=== PATIENT | male | born 1980 | race Caucasian/White ===

== ENCOUNTER 2022-08-09 08:00 | Outpatient (NON) | payer OTHER, SELFPAY | END 2022-08-09 08:01 | disposition home or self-care (01) | LOC: ANHLAB 08-10 10:00 | PROVIDERS: PCP Family Medicine; Visit Provider Internal Medicine Gastroenterology | DX: R19.5 Other fecal abnormalities (principal) | CPT/HCPCS: 88305 ==

== ENCOUNTER 2022-08-09 10:54 | Day surgery (SDC) | payer OTHER, SELFPAY ==
[2022-07-25 09:25] VITALS: BMI 19.9
[2022-08-02 07:46] VITALS: BMI 19.9
--- NOTE | 2022-08-08 15:01 | PM.HPGS ---
History of Present Illness History of Present Illness Consent: Risks, benefits, and alternatives have been discussed and questions answered. Patient agrees to proceed with procedure. Chief complaint: Change in Consistency of Stool Narrative: Kirk Redding is a 42 year old male referred for change in bowel habits. For about 2 years he has had very soft almost loose stools each morning. He does not see blood in his stools. Review of Systems Review of Systems: All systems reviewed & are unremarkable except as noted in HPI and below PMFSH Past Medical History Medical History Change in consistency of stool Cough Loose stools Family History Family History Grandparent Hypertension Family history of coronary artery disease Mother Family history of thyroid disease Social History Social History Smoking status: Never smoker Alcohol intake: current Alcohol use details: 2-3 drinks, 3-4 days per week Substance use type: does not use Living arrangements: with family Spiritual care concerns: No Meds Home Medications and Allergies Home Medications Medication Instructions Recorded Confirmed Type No Home Medications 08/02/22 08/09/22 History Allergies Allergy/AdvReac Type Severity Reaction Status Date / Time No Known Allergies Allergy Mild Verified 08/09/22 11:02 Exam Resp: Auscultation: clear to auscultation bilaterally Cardio: Rate: regular rate Rhythm: regular rhythm GI: GI Palp: Yes Soft to palpation and No Tenderness to palpation present (GI) Assessment and Plan Assessment and plan (1) Change in consistency of stool: Code(s): R19.5 - Other fecal abnormalities Status: Acute Assessment and Plan: Colonoscopy with possible biopsy or polypectomy or cautery or injection of substances.
--- NOTE | 2022-08-09 09:36 | P.PNAN_ITS ---
Anes - Initial Pre Proc Eval Procedure: Operation Date: 08/09/22 12:30 Proposed Procedures p Diagnostic Colonoscopy - Wolf Walter MD Date/Time: 08/09/22 09:36 Surgeon: Wolf Walter MD Pre Op Diagnosis: Change in Consistency of Stool Patient Data Age: 42 Gender: M Height: 1.73 m Weight: 59.5 kg Allergies Allergy/AdvReac Type Severity Reaction Status Date / Time No Known Allergies Allergy Mild Verified 08/09/22 11:02 Home Medications Medication Instructions Recorded Confirmed Type No Home Medications 08/02/22 08/09/22 History Patient hx anesthesia problems: none Family hx anesthesia problems: none Results Review: All pre-operative results and documents have been reviewed as part of the pre- operative evaluation. [facility] Past Medical History Medical History (Updated 07/18/22 @ 16:32 by NATHAN Bay) Change in consistency of stool Cough Loose stools Family History Family History Grandparent Hypertension Family history of coronary artery disease Mother Family history of thyroid disease Social History Social History (Updated 08/09/22 @ 11:56 by Josep Espana DO) Smoking status: Never smoker Alcohol intake: current Alcohol use details: 2-3 drinks, 3-4 days per week Substance use type: does not use Living arrangements: with family Spiritual care concerns: No Anes - Eval Final PreProcedure Day of Procedure 08/09/22 09:36 Patient weight: normal Heart: regular rate and rhythm Lungs: clear to auscultation and normal air movement Airway: Mallampati scale class II Neurological: alert and oriented Last oral intake: >/= 8 hours ASA classification: II Emergent: no Anesthetic plan: proceed Anesthesia type and monitoring: general GIVS and standard monitoring Results Review: All pre-operative results and documents have been reviewed as part of the pre- operative evaluation. Informed Consent: The patient's anesthetic plan and its attendant risks and benefits were discussed with the patient/family/POA. Questions were solicited and answers provided to the satisfaction of the patient/family/POA.
[2022-08-09 11:05] VITALS: BMI 18.8
[2022-08-09 11:11] VITALS: BP 97/82; PULSE 66; RESP 16; TEMP 36.8; O2SAT 100
[2022-08-09] MEDS: LACTATED RINGERS 1,000 ML 150 ML IV CONT (11:30)
[2022-08-09 12:42] VITALS: BP 98/60; PULSE 55; RESP 16; O2SAT 99
[2022-08-09 12:52] VITALS: BP 95/64; PULSE 54; RESP 16; O2SAT 99
[2022-08-09 13:02] VITALS: BP 109/72; PULSE 50; RESP 15; O2SAT 99
--- NOTE | 2022-08-09 13:20 | WPDANESPN ---
Anes - Prog Note Post-Op Date/Time: 08/09/22 13:20 Cardiovascular status: normal Respiratory status: normal Airway patency: baseline Mental status: baseline Post-Op hydration status: normal Vital Signs: Last Vital Signs Temp 36.8 C 08/09/22 11:11 Pulse 50 L 08/09/22 13:02 Resp 15 08/09/22 13:02 BP 109/72 08/09/22 13:02 Pulse Ox 99 08/09/22 13:02 O2 Del Method Room Air 08/09/22 13:02 Pain Score (VAS): 0 I/O: Intake & Output 08/08/22 08/09/22 08/09/22 23:59 07:59 15:59 Intake Total 500 Balance 500 Post-procedural complaints: none Patient Feedback: Patient satisfied with anesthetic care. Other Findings: Patient vital signs back to baseline. Patient denies nausea and vomiting. Patient's pain under control. Patient OK for discharge.
== END 2022-08-09 13:20 | disposition home or self-care (01) ==
PROVIDERS: PCP Family Medicine; Visit Provider Internal Medicine Gastroenterology
PROC: 0DJD8ZZ Inspection of Lower Intestinal Tract, Via Natural or Artificial Opening Endoscopic (ICD-10-PCS; CPT 45378; principal; 2022-08-09 12:30)
DX: R19.5 Other fecal abnormalities (principal)
CPT/HCPCS: 45380

== ENCOUNTER 2023-04-12 13:29 | Emergency (ER) | payer OTHER, SELFPAY ==
[2023-04-12 13:40] VITALS: BP 116/74; PULSE 52; RESP 16; TEMP 36.2; O2SAT 99
--- NOTE | 2023-04-12 13:41 | ED.URI ---
HPI - URI/Sore Throat General Chief Complaint: Upper Respiratory Infection Stated Complaint: Ear Pressure and pain for 1 wk Time Seen by Provider: 04/12/23 13:41 Source: patient Mode of arrival: ambulatory Limitations: no limitations History of Present Illness HPI Narrative: 43-year-old male presents with complaint of bilateral ear pain, left worse than right. Afebrile. Reports that he had sinus congestion postnasal drainage that resolved last week. Decreased hearing to left ear. All systems reviewed and negative except as noted above. Related Data Allergies Allergy/AdvReac Type Severity Reaction Status Date / Time No Known Allergies Allergy Mild Verified 04/12/23 13:33 Review of Systems Review of Systems: CONSTITUTIONAL: Denies fever, chills, or sweats. EYES: Denies visual changes, redness, or discharge. ENT: Denies rhinorrhea, congestion, sore throat . Reports bilateral ear pain. CARDIOVASCULAR: Denies chest pain, palpitations, or edema. RESPIRATORY: Denies cough or dyspnea. GASTROINTESTINAL: Denies abdominal pain, nausea, vomiting, or diarrhea. GENITOURINARY: Denies dysuria or hematuria. SKIN: Denies rash or itching. MUSCULOSKELETAL: Denies back pain, joint pain, or myalgia. NEUROLOGIC: Denies headache, numbness, or weakness. PSYCHIATRIC: Denies anxiety or depression. All other systems reviewed are negative, except as documented in HPI. PMFSH Past Medical History Medical History Change in consistency of stool Cough Loose stools Family History Family History Grandparent Hypertension Family history of coronary artery disease Mother Family history of thyroid disease Social History Social History Smoking status: Never smoker Alcohol intake: current Alcohol use details: 2-3 drinks, 3-4 days per week Substance use type: does not use Living arrangements: with family Spiritual care concerns: No Comments At time of signature, agree with nursing past medical, surgical, social and family history. There is no relevant family history pertinent to the presenting complaint. Exam Narrative: GENERAL: This is a well-nourished, well-developed patient, in no apparent distress. HEAD: normocephalic, atraumatic. EYES: PERRL. Sclera clear/white. Vision is grossly intact. EARS: External ears normal, auditory canals clear and without drainage, Yellow fluid, bubbles to left TM With mild erythema. Clear fluid to right TM. no perforation bilaterally. NOSE: External nose normal with no obvious nasal discharge, nares without redness, no rhinorrhea. THROAT: Mucous membranes moist, Postnasal drainage without swelling or erythema NECK: Neck supple, non-tender without lymphadenopathy, masses or thyromegaly. CARDIOVASCULAR: Regular rate and rhythm without murmurs, gallops, or rubs. RESPIRATORY: Clear to auscultation. Breath sounds equal bilaterally. No wheezes, rales, or rhonchi. SKIN: warm, Dry, intact with no suspicious lesions or rash, good texture and turgor. NEURO: awake, alert, and oriented to person, place and time. There were no obvious focal neurologic abnormalities. EXTREMITIES: No joint tenderness, effusion, or edema noted. Course Course Level of Care: Express Care Visit Vital Signs Vital signs: Vital Signs Temperature 36.2 C L 04/12/23 13:40 Pulse Rate 52 L 04/12/23 13:40 Respiratory Rate 16 04/12/23 13:40 Blood Pressure 116/74 04/12/23 13:40 Pulse Oximetry 99 04/12/23 13:40 Oxygen Delivery Room Air 04/12/23 13:40 Temperature 36.2 C L 04/12/23 13:40 Pulse Rate 52 L 04/12/23 13:40 Respiratory Rate 16 04/12/23 13:40 Blood Pressure 116/74 04/12/23 13:40 Pulse Oximetry 99 04/12/23 13:40 Oxygen Delivery Room Air 04/12/23 13:40 reviewed MDM - URI/Sore Throat MDM Narrative Medical
== END 2023-04-12 13:49 | disposition home or self-care (01) ==
PROVIDERS: Emergency Provider Nurse Practitioner Family; PCP Family Medicine
DX: H65.02 Acute serous otitis media, left ear (principal)
CPT/HCPCS: 99213; G0463

== ENCOUNTER 2023-10-12 08:06 | Emergency (ER) | payer OTHER, SELFPAY ==
[2023-10-12 08:20] VITALS: BP 109/71; PULSE 44; RESP 16; TEMP 36.8; O2SAT 100
--- NOTE | 2023-10-12 08:31 | ED.URI ---
HPI - URI/Sore Throat General Chief Complaint: Upper Respiratory Infection Stated Complaint: Sore Throat and Earache Time Seen by Provider: 10/12/23 08:20 Source: patient and RN notes reviewed Mode of arrival: ambulatory Limitations: no limitations History of Present Illness HPI Narrative: Patient presents today complaining of a 3-4 day history of postnasal drip, sore throat, bilateral ear pressure in pain. Denies fever, cough, congestion, rhinorrhea. Patient just returned from vacation and was flying. Currently rates pain 10/06 and has been taking ibuprofen with mild relief. Related Data Allergies Allergy/AdvReac Type Severity Reaction Status Date / Time No Known Allergies Allergy Mild Verified 10/12/23 08:12 Review of Systems Review of Systems: CONSTITUTIONAL: Denies body aches, fever, chills, or sweats. EYES: Denies visual changes, redness, or discharge. ENT: Denies rhinorrhea, congestion. + sore throat, bilateral ear pain and pressure, postnasal CARDIOVASCULAR: Denies chest pain, palpitations, or edema. RESPIRATORY: Denies cough or dyspnea. GASTROINTESTINAL: Denies abdominal pain, nausea, vomiting, or diarrhea. GENITOURINARY: Denies dysuria or hematuria. SKIN: Denies rash, itching, or wounds. MUSCULOSKELETAL: Denies back pain, joint pain, or myalgia. NEUROLOGIC: Denies headache, numbness, tingling, or weakness. PSYCH: Denies depression or anxiety. [facility] Past Medical History Medical History Change in consistency of stool Cough Loose stools Family History Family History Grandparent Hypertension Family history of coronary artery disease Mother Family history of thyroid disease Social History Social History Smoking status: Never smoker Alcohol intake: current Alcohol use details: 2-3 drinks, 3-4 days per week Substance use type: does not use Do You Feel Safe in your Home?: Yes Lack of Transportation: No Lack of Food: Never True Current Housing: I Have Housing Concerned About Future Housing: No Difficulty Paying Gas/Electric Bills: No Difficulty Paying for Meds: No Currently Unemployed: No Education: Master's Degree or Higher Difficulty w/ Childcare or Family Care: No Living arrangements: with family Spiritual care concerns: No Comments At time of signature, I have reviewed and agree with nursing past medical, surgical, social and family history unless otherwise noted. Please see nursing chart for further information. There is no relevant family history pertinent to the presenting complaint Exam Narrative: GENERAL: Well-appearing, well-nourished, and in no acute distress. Thin HEAD: Normocephalic, atraumatic. EYES: EOMI. No redness or drainage. Conjunctivae normal. ENT: Mucous membranes pink and moist. Nares clear. No rhinorrhea. Right injected and dull TM. Left TM normal. Throat mildly erythematous without edema or exudate. Uvula midline. NECK: Normal AROM. Supple. No lymphadenopathy. CHEST: No respiratory distress. Clear to auscultation. HEART: Regular rate and rhythm. No murmur appreciated. EXTREMITIES: Normal range of motion. No edema. SKIN: Warm, dry, no rash. Capillary refill normal. Normal skin turgor. NEURO: No focal deficits. Alert and oriented x3. Gait steady. PSYCH: Normal affect. No signs of depression or anxiety. Course Course Level of Care: Express Care Visit Vital Signs Vital signs: Vital Signs Temperature 98.2 F 10/12/23 08:20 Pulse Rate 44 L 10/12/23 08:20 Respiratory Rate 16 10/12/23 08:20 Blood Pressure 109/71 10/12/23 08:20 Pulse Oximetry 100 10/12/23 08:20 Oxygen Delivery Room Air 10/12/23 08:20 Temperature 98.2 F 10/12/23 08:20 Pulse Rate 44 L 10/12/23 08:20 Respiratory Rate 16 10/12/23 08:20 Blood Pressure
== END 2023-10-12 08:33 | disposition home or self-care (01) ==
PROVIDERS: Emergency Provider Nurse Practitioner; PCP Family Medicine
DX: H66.91 Otitis media, unspecified, right ear (principal); J02.9 Acute pharyngitis, unspecified
CPT/HCPCS: 87081; 87880; 99213; G0463

== ENCOUNTER 2024-04-02 08:01 | Emergency (ER) | payer OTHER, SELFPAY ==
[2024-04-02 08:28] VITALS: BP 112/70; PULSE 67; RESP 18; TEMP 37.5; O2SAT 99
[2024-04-02 08:47] LABS: EDSTREPNEGPOS1 Negative (Negative)
--- NOTE | 2024-04-02 08:51 | ED_ITS ---
HPI - URI/Sore Throat General Chief Complaint: Upper Respiratory Infection Stated Complaint: flu like symptoms Time Seen by Provider: 04/02/24 08:29 Source: patient and RN notes reviewed Mode of arrival: ambulatory Limitations: no limitations History of Present Illness HPI Narrative: Patient presents today complaining of body aches, chills, headache, bilateral ear pressure, and low-grade fever up to 100 since yesterday. He has been taking ibuprofen which has provided some relief. Son sick with similar symptoms. Related Data Home Medications Medication Instructions Recorded Confirmed No Home Medications 04/02/24 04/02/24 Allergies Allergy/AdvReac Type Severity Reaction Status Date / Time No Known Allergies Allergy Mild Verified 04/02/24 08:40 Review of Systems Review of Systems: CONSTITUTIONAL: Denies sweats.+ fever, body aches chills EYES: Denies visual changes, redness, or discharge. ENT: Denies rhinorrhea, congestion, sore throat, or otalgia.+ bilateral ear pressure CARDIOVASCULAR: Denies chest pain, palpitations, or edema. RESPIRATORY: Denies cough or dyspnea. GASTROINTESTINAL: Denies abdominal pain, nausea, vomiting, or diarrhea. GENITOURINARY: Denies dysuria or hematuria. SKIN: Denies rash, itching, or wounds. MUSCULOSKELETAL: Denies back pain, joint pain, or myalgia. NEUROLOGIC: Denies numbness, tingling, or weakness.+ headache PSYCH: Denies depression or anxiety. [facility] Past Medical History Medical History Change in consistency of stool Cough Loose stools Family History Family History Grandparent Hypertension Family history of coronary artery disease Mother Family history of thyroid disease Social History Social History Smoking status: Never smoker Alcohol intake: current Alcohol use details: 2-3 drinks, 3-4 days per week Substance use type: does not use Do You Feel Safe in your Home?: Yes Lack of Transportation: No Lack of Food: Never True Current Housing: I Have Housing Concerned About Future Housing: No Difficulty Paying Gas/Electric Bills: No Difficulty Paying for Meds: No Currently Unemployed: No Education: Master's Degree or Higher Difficulty w/ Childcare or Family Care: No Living arrangements: with family Spiritual care concerns: No Comments At time of signature, I have reviewed and agree with nursing past medical, surgical, social and family history unless otherwise noted. Please see nursing chart for further information. There is no relevant family history pertinent to the presenting complaint Exam Narrative: GENERAL: Well-appearing, well-nourished, and in no acute distress. HEAD: Normocephalic, atraumatic. EYES: EOMI. No redness or drainage. Conjunctivae normal. ENT: Mucous membranes pink and moist. Nares clear. No rhinorrhea. TMs normal bilaterally. Throat mildly erythematous without edema or exudate. Uvula midline. NECK: Normal AROM. Supple. No lymphadenopathy. CHEST: No respiratory distress. Clear to auscultation. HEART: Regular rate and rhythm. No murmur appreciated. EXTREMITIES: Normal range of motion. No edema. SKIN: Warm, dry, no rash. Capillary refill normal. Normal skin turgor. NEURO: No focal deficits. Alert and oriented x3. Gait steady. PSYCH: Normal affect. No signs of depression or anxiety. Course Course Level of Care: Express Care Visit Vital Signs Vital signs: Vital Signs Temperature 99.5 F 04/02/24 08:28 Pulse Rate 67 04/02/24 08:28 Respiratory Rate 18 04/02/24 08:28 Blood Pressure 112/70 04/02/24 08:28 Pulse Oximetry 99 04/02/24 08:28 Oxygen Delivery Room Air 04/02/24 08:28 Temperature 99.5 F 04/02/24 08:28 Pulse Rate 67 04/02/24 08:28 Respiratory Rate 18 04/02/24 08:28 Blood Pressure 112/70 04/02/24 08:28 Pulse Oximetry 99 04/02/24 08:28 Oxygen Delivery Room Air 04/02/24 08:28 Reviewed MDM - URI/Sore Throat MDM Narrative Medical decision making narrative: Testing negative. Strep culture pending. Symptoms likely viral in etiology. Discussed [id number] medication use and duration of illness. No prescription medications indicated at this time. Anticipatory guidance given. Differential Diagnosis Differential diagnosis: Likely upper respiratory infection, otitis media, viral infection, influenza, pharyngitis and other (Strep throat, COVID) Lab Data Attestation: I reviewed the patient's lab results. Labs: Lab Results 04/02/24 04/02/24 Range/Units 08:32 08:45 POC Influenza A Ag Negative (Negative) POC Influenza B Ag Negative (Negative) POC SARS CoV-2 Ag Negative (Negative) POC Grp A Strep Screen Negative (Negative) Critical Care Time Critical Care Time Critical Care Time: No Discharge Plan Discharge Clinical Impression: Viral syndrome Patient Disposition: Home, Self-Care Condition: Stable Instructions: Viral Syndrome in Children (ED) Additional Instructions: Your COVID, influenza, and rapid strep swab were negative today at [facility]. You will be notified in a few days if the culture comes back positive for strep, and appropriate antibiotics will be called in for you at that time. Your symptoms are likely due to a viral illness, which is not treated with antibiotics. Viral symptoms can be present for up to 7-10 days. Take Tylenol or ibuprofen for fever or pain. Mucinex, Robitussin DM, or Delsym can be helpful for cough. Rest and stay hydrated. Follow up with your PCP in 7-10 days if symptoms are not improving. Go to the ER immediately if you have any difficulty breathing or swallowing. Prescriptions: No Action No Home Medications Follow-up/Referrals: Oneil Alvarez MD [Primary Care Provider] - Stand Alone Forms: Work/School Release IP Time of Disposition: 08:57
[2024-04-02 09:07] LABS: EDCOVIDSCREEN Negative (Negative); EDINFLUASCREEN Negative (Negative); EDINFLUBSCREEN Negative (Negative)
== END 2024-04-02 09:03 | disposition home or self-care (01) ==
PROVIDERS: Emergency Provider Nurse Practitioner; PCP Family Medicine
DX: B34.9 Viral infection, unspecified (principal); Z20.822 Contact with and (suspected) exposure to COVID-19
CPT/HCPCS: 87081; 87426; 87804; 87880; 99213; G0463

== ENCOUNTER 2024-10-21 13:43 | Inpatient (IN) | payer OTHER, SELFPAY ==
[2024-10-21] VITALS (24 sets, daily range): BP systolic 98–145; BP diastolic 64–90; PULSE 50–87; RESP 12–20; TEMP 36.5–36.8; O2SAT 96–100; BMI 19.6
--- NOTE | 2024-10-21 13:45 | ECG_ITS ---
Test Date: 2024-10-21 13:50:05 Measurements Intervals [place] Rate: 58 P: 65 WI: 156 QRS: 84 QRSD: 105 T: 35 QT: 406 QTc: 401 Interpretive Statements SINUS BRADYCARDIA INCOMPLETE RIGHT BUNDLE BRANCH BLOCK DELAYED PRECORDIAL R/S TRANSITION ANTERIOR ST ELEVATION- CONSIDER ACUTE INJURY TALL T-WAVES, SUGGESTS HYPERKALEMIA BASELINE ARTIFACT- I, II, III, AVR ABNORMAL ECG No previous ECG available for comparison Electronically Signed On 10-21-2024 14:38:22 CDT by Adarsh Chapa D.O.
--- NOTE | 2024-10-21 13:52 | ED.CHESTPAIN ---
HPI - Chest Pain General Chief Complaint: Chest Pain Stated Complaint: chest pain and bilat arm pain Time Seen by Provider: 10/21/24 13:51 Source: patient Mode of arrival: ambulatory Limitations: no limitations History of Present Illness HPI narrative: Patient presents with chest pain beginning 2 hours prior to arrival. He notes that radiates to his bilateral arms. No associated shortness of breath, nausea, vomiting, diaphoresis. He has not been unwell recently. No cough. This has never happened before. Does not follow with a chief service dispatcher. He describes it as a pressure. Symptoms not worse with laying flat or breathing deeply. Care coordination learned from that he took 4 ibuprofen and 2 Pepto HEEL LIFT GOUGER. He has been injecting peptides recently. Otherwise healthy, runs [email or web address]. Cardiac risk factors HTN: No HLD: No (recently had lipids lab) DM: No Obese: No Smoker: No Personal history NM/TIA/CVA: No Fam Hx NM in first degree relative <65yo: Mother 65 NM (recent) Related Data Allergies Allergy/AdvReac Type Severity Reaction Status Date / Time No Known Allergies Allergy Mild Verified 10/21/24 14:01 [facility] Past Medical History Medical History Loose stools Change in consistency of stool Cough Family History Family History Grandparent Hypertension Family history of coronary artery disease Mother Family history of thyroid disease Social History Social History (Updated 10/21/24 @ 14:12 by Jyoti Ames MD) Social History: Regularly works out Smoking status: Never smoker Alcohol intake: current Alcohol use details: 2-3 drinks, 3-4 days per week Substance use type: does not use Do You Feel Safe in your Home?: Yes Lack of Transportation: No Lack of Food: Never True Current Housing: I Have Housing Concerned About Future Housing: No Difficulty Paying Gas/Electric Bills: No Difficulty Paying for Meds: No Currently Unemployed: No Education: Master's Degree or Higher Difficulty w/ Childcare or Family Care: No Living arrangements: with family Spiritual care concerns: No Exam Narrative: GENERAL: Well-appearing, well-nourished, and in no acute distress. HEAD: Normocephalic, atraumatic. EYES: Non injected, non icteric ENT: Nares clear, no rhinorrhea or epistaxis. Gross auditory acuity intact. NECK: Supple. No meningismus. CHEST: Speaking in full sentences. No respiratory distress. HEART: Regular rate and rhythm. . ABDOMEN: Soft, nondistended. Not overweight or obese. EXTREMITIES: Normal range of motion. No bilateral lower extremity edema. SKIN: Warm, dry, no rash. NEURO: No focal deficits. Alert and oriented. Answering questions. Following commands. Normal speech without aphasia or dysarthria. PSYCH: Normal mood and affect. Course Vital Signs Vital signs: Vital Signs Temperature 97.7 F 10/21/24 13:47 Pulse Rate 87 10/21/24 13:47 Respiratory Rate 18 10/21/24 13:47 Blood Pressure 145/90 H 10/21/24 13:47 Pulse Oximetry 97 10/21/24 13:47 Oxygen Delivery Room Air 10/21/24 13:47 Temperature 97.7 F 10/21/24 13:47 Pulse Rate 64 10/21/24 14:03 Respiratory Rate 18 10/21/24 14:03 Blood Pressure 133/79 10/21/24 14:03 Pulse Oximetry 99 10/21/24 14:03 Oxygen Delivery Room Air 10/21/24 13:47 MDM - Chest Pain MDM Narrative Medical decision making narrative: Patient presents with chest pain beginning 2 hours prior to arrival. In the emergency department he is afebrile with vital signs that show mild hypertension. EKG obtained in triage is very concerning for STEMI, particularly the appearance of V3 and V4. STEMI activated. Although he is otherwise low risk and EKG may otherwise represent benign early repolarization or pericarditis or hyperkalemia (differential diagnosis), out of an abundance of precaution, discussed with Dr. Mahajan who evaluated the patient at bedside and did decide to take patient to the laborer salvage for cardiac catheterization and exploration. Patient is updated at bedside and in agreement. He is hemodynamically stable. Dr Mahajan requests Aspirin and heparin with bolus (recommends 5000 but 3500 per weight by pharmacy protocol). HEART SCORE History 2 highly suspicious 1 moderately suspicious 0 slightly suspicious History score [address] depression/elevation not due to LBBB, LVH, or digoxin [address] depression but LBBB, LVH, nonspecific repolarization changes 0 normal ECG score 2 Age 2 >/= 65 1 45-64 0 <45 Age score 1 Risk factors (HTN, hypercholesterolemia, DM, obesity with BMI >30, current smoker or cessation </=3mo), positive fam hx with parent or sibling with CVD before age 65, atherosclerotic disease (prior NM, PCI/CABG, CVA/TIA, or peripheral arterial disease) 2 >/= 3 risk factors or history of atherosclerotic dz 1 - 1-2 risk factors 0 no known risk factors Risk factor score 1 (family history) Initial Troponin 2 >3 times normal limit 1 1-3 times normal limit 0 less than or equal to normal limit Troponin score 0 Total HEART Score 5. == Critical Care: 1 or more vital organ systems impaired with a high probability of imminent or life-threatening deterioration in the patient's condition requiring frequent personal assessment and manipulation of the patient's condition. This included time spent evaluating the patient, reviewing/interpreting laboratory/imaging studies, discussing the case with consultants or admitting teams, retrieving data and reviewing charts, monitoring for decompensation, documenting the visit, and performing bundled procedures exclusive of separately billed procedures. Lab Data Attestation: I reviewed the patient's lab results. 10/21/24 13:55 10/21/24 13:55 ECG Data EKG #1: Attestation: I personally reviewed and interpreted this ECG as follows: ECG completion date: 10/21/24 ECG completion time: 13:50 Prior ECG tracings: not available for review (No prior for comparison) Interpretation: Sinus bradycardia at a rate of 58 beats per minute. UT interval 156. QRS 105. QT/QTC 406/403. There is concern for ST-elevation particularly V3 and V4. No T-wave inversions. Critical Care Time Critical Care Time Critical Care Time: Yes Total Critical Care Time: 15 Discharge Plan Discharge Clinical Impression: STEMI (ST elevation myocardial infarction), Normocytic anemia Patient Disposition: Still a Patient Condition: Stable
[2024-10-21] MEDS: ASPIRIN 81 MG CHEWABLE TABLET 324 MG PO (13:59)
[2024-10-21 14:01] LABS: Basophils Absolute Auto 0.1 K/mm3 (0.0-0.1); Basophils Percent Auto 0.8 % (0.2-1.2); Eosinophils Absolute Auto 0.3 K/mm3 (0-0.3); Eosinophils Percent Auto 4.2 % (0-4.4); Hematocrit 40.2 % (42.0-52.0); Hemoglobin 13.1 g/dL (14.0-18.0); Immature Granulocyte Absolute 0.01 K/mm3 (0.00-0.031); Immature Granulocyte Percent A 0.2 % (0-0.5); Lymphocytes Absolute Auto 1.76 K/mm3 (0.9-3.2); Lymphocytes Percent Auto 27.1 % (18.3-44.2); Mean Corpuscular HGB Conc 32.6 g/dl (32-36); Mean Corpuscular Hemoglobin 29.9 pg (26-34); Mean Corpuscular Volume 91.8 fl (80-100); Mean Platelet Volume 9.4 fl (7.4-10.4); Monocytes Absolute Auto 0.8 K/mm3 (0.1-0.6); Monocytes Percent Auto 12.6 % (2.6-8.5); Neutrophils Absolute Auto 3.6 K/mm3 (1.3-6.7); Neutrophils Percent Auto 55.1 % (45.5-73.1); Platelet Count Result 234 k/mm3 (150-375); Red Blood Count 4.38 M/mm3 (4.6-6.20); Red Cell Distribution Width 11.9 % (11.5-14.5); White Blood Count 6.5 K/mm3 (4.5-10.0)
[2024-10-21] MEDS: HEPARIN SODIUM 5,000 UNITS/ML VIAL 3500 UNITS IV PUSH (14:02)
--- NOTE | 2024-10-21 14:06 | PM.IMHP ---
H&P: HPI History of Present Illness Date/Time: 10/21/24 14:06 Chief Complaint: Chest discomfort Narrative: 44-year-old man with no significant past medical history however does have strong family history of cardiac conditions presented with chest discomfort. Substernal with radiation to neck occur about 2 hours ago at rest. Has not been resolving prompting him to come to the emergency room for further evaluation. No other associated symptoms at this time. Typically functional of the with no cardiopulmonary limitations. Discomfort is not worsened with deep inhalation or position. Discomfort is constant. Review of Systems Constitutional: Constitutional: Reports as per HPI Cardiovascular: Cardiovascular: Reports as per HPI Respiratory: Respiratory: Reports as per HPI [facility] Past Medical History Medical History Loose stools Change in consistency of stool Cough Family History Family History Grandparent Hypertension Family history of coronary artery disease Mother Family history of thyroid disease Social History Social History Smoking status: Never smoker Alcohol intake: current Alcohol use details: 2-3 drinks, 3-4 days per week Substance use type: does not use Do You Feel Safe in your Home?: Yes Lack of Transportation: No Lack of Food: Never True Current Housing: I Have Housing Concerned About Future Housing: No Difficulty Paying Gas/Electric Bills: No Difficulty Paying for Meds: No Currently Unemployed: No Education: Master's Degree or Higher Difficulty w/ Childcare or Family Care: No Living arrangements: with family Spiritual care concerns: No Meds Home Medications and Allergies Allergies Allergy/AdvReac Type Severity Reaction Status Date / Time No Known Allergies Allergy Mild Verified 10/21/24 14:01 Vital Signs Vital Signs - 24 hr 10/21/24 13:47 10/21/24 14:02 10/21/24 14:03 Temperature 36.5 C Pulse Rate 87 64 64 Respiratory Rate 18 18 Blood Pressure 145/90 H 133/79 Pulse Oximetry 97 99 Oxygen Delivery Room Air Exam Const: General: in distress HENMT: Mouth: Yes moist mucous membranes Eyes: EOM: EOMs intact bilaterally Neck: Neck: no JVD Resp: Effort & Inspection: normal respiratory effort Auscultation: clear to auscultation bilaterally Cardio: Rate: regular rate Rhythm: regular rhythm GI: GI Palp: Yes Soft to palpation Extrem: General: no pedal edema H&P: Results Labs Labs: Short CBC 10/21/24 Range/Units 13:55 WBC 6.5 (4.5-10.0) K/mm3 Hgb 13.1 L (14.0-18.0) g/dL Hct 40.2 L (42.0-52.0) % Plt Count 234 (150-375) k/mm3 Assessment and Plan Assessment and plan (1) STEMI (ST elevation myocardial infarction): Code(s): I21.3 - ST elevation (STEMI) myocardial infarction of unspecified site Status: Acute Plan 44-year-old man with no significant past medical history however does have strong family history of cardiac conditions presented with chest discomfort whose EKG is concerning for anterior ST-elevation [place] Anterior ST-elevation [place] -risk and benefits have been explained to the patient agreed to proceed forward -aspirin 325 at been given in emergency room as well as 5000 units of heparin -obtain transthoracic echocardiogram
[2024-10-21 14:12] LABS: Prothrombin Time 12.9 Seconds (11.1-14.7)
[2024-10-21 14:13] LABS: Partial Thromboplastin Time 31.6 Seconds (22.3-36.8)
[2024-10-21 14:14] LABS: Alanine Aminotransferase 35 U/L (6-50); Albumin Level 4.3 g/dL (3.5-5.1); Alkaline Phosphatase 57 U/L (38-126); Anion Gap 8 mmol/L (4-12); Aspartate Amino Transferase 59 U/L (17-59); Bilirubin,Total 0.6 mg/dL (0.2-1.3); Blood Urea Nitrogen 29 mg/dL (9-20); Carbon Dioxide 24 mmol/L (22-30); Chloride 101 mmol/L (98-107); Glucose 99 mg/dL (65-110); Lipase 218 U/L (23-300); Potassium 3.9 mmol/L (3.4-5.0); Sodium 133 mmol/L (137-145); Total Protein 7.6 g/dL (6.3-8.2)
--- NOTE | 2024-10-21 14:15 | P.SEDATION_ITS ---
Moderate Sedation Note-Pt Data Patient Data Allergies Allergy/AdvReac Type Severity Reaction Status Date / Time No Known Allergies Allergy Mild Verified 10/21/24 14:01 Current Medications: Active Medications Heparin Sodium (Porcine) (Heparin Sodium 5,000 Units/Ml Vial) 4,000 units IV PUSH PRN PRN PRN Reason: aPTT less than 55 seconds Heparin Sodium (Porcine) (Heparin Sodium 5,000 Units/Ml Vial) 2,500 units IV PUSH PRN PRN PRN Reason: aPTT 55 - 70 seconds Heparin Sodium/Dextrose (Heparin Sodium/D5w 100 Units/Ml) 25,000 units in 250 mls @ 7 mls/hr IV CONT .Q24H NOEL; Protocol Perflutren Lipid Microsphere (Perflutren Lipid Microspheres 1.5 Ml Vial Diluted To 10 Ml Total Volume) 0 ml IV PUSH ONCE PRN; Protocol PRN Reason: adequate visualization Stop: 10/24/24 14:09 Sedation/Anesthesia: No previous sedation/anesthesia problems (including family history). [facility] Past Medical History Medical History Loose stools Change in consistency of stool Cough Family History Family History Grandparent Hypertension Family history of coronary artery disease Mother Family history of thyroid disease Social History Social History (Updated 10/21/24 @ 14:12 by Jyoti Ames MD) Social History: Regularly works out Smoking status: Never smoker Alcohol intake: current Alcohol use details: 2-3 drinks, 3-4 days per week Substance use type: does not use Do You Feel Safe in your Home?: Yes Lack of Transportation: No Lack of Food: Never True Current Housing: I Have Housing Concerned About Future Housing: No Difficulty Paying Gas/Electric Bills: No Difficulty Paying for Meds: No Currently Unemployed: No Education: Master's Degree or Higher Difficulty w/ Childcare or Family Care: No Living arrangements: with family Spiritual care concerns: No Mod Sed Physical Exam Physical Exam Pre Procedural Exam: Normal: Lungs, Heart Rate and Heart Rhythm Hours since solid foods: 6 Hours since liquid intake: 6 Mallampati Classification: class II Internal Medicine - PN: Obj Da Vital Signs Vital Signs: Vital Signs - 24 hr 10/21/24 13:47 10/21/24 14:02 10/21/24 14:03 Temperature 36.5 C Pulse Rate 87 64 64 Respiratory Rate 18 18 Blood Pressure 145/90 H 133/79 Pulse Oximetry 97 99 Oxygen Delivery Room Air Meds/Results Medications: Active Medications Generic Name Dose Route Start Last Admin Trade Name Freq PRN Reason Stop Dose Admin Heparin Sodium (Porcine) 4,000 units 10/21/24 13:59 Heparin Sodium 5,000 Units/Ml Vial IV PUSH PRN PRN aPTT less than 55 seconds Heparin Sodium (Porcine) 2,500 units 10/21/24 13:59 Heparin Sodium 5,000 Units/Ml Vial IV PUSH PRN PRN aPTT 55 - 70 seconds Heparin Sodium/Dextrose 25,000 units in 250 mls @ 7 mls/hr 10/21/24 14:00 Heparin Sodium/D5w 100 Units/Ml IV CONT .Q24H NOEL Protocol 700 UNITS/HR Perflutren Lipid Microsphere 0 ml 10/21/24 14:09 Perflutren Lipid Microspheres 1.5 Ml Vial Diluted To 10 Ml Total Volume IV PUSH 10/24/24 14:09 ONCE PRN adequate visualization Protocol Labs 10/21/24 13:55 10/21/24 13:55 Labs: Laboratory Results - last 24 hr 10/21/24 13:55 WBC 6.5 RBC 4.38 L Hgb 13.1 L Hct 40.2 L MCV 91.8 MCH 29.9 MCHC 32.6 RDW 11.9 Plt Count 234 MPV 9.4 Immature Gran % (Auto) 0.2 Neut % (Auto) 55.1 Lymph % (Auto) 27.1 [place] % (Auto) 12.6 H Eos % (Auto) 4.2 Baso % (Auto) 0.8 Lymph # (Auto) 1.76 [place] # (Auto) 0.8 H Eos # (Auto) 0.3 Baso # (Auto) 0.1 Abs Immat Gran (auto) 0.01 Absolute Neuts (auto) 3.6 Absolute Nucleated RBC 0.000 Nucleated RBC % 0.0 PT 12.9 INR 1.0 APTT 31.6 Sodium 133 L Potassium 3.9 Chloride 101 Carbon Dioxide 24 Anion Gap 8 BUN 29 H Glucose 99 Calcium 9.0 Total Bilirubin 0.6 AST 59 ALT 35 Alkaline Phosphatase 57 Total Protein 7.6 Albumin 4.3 Lipase 218 ASA Classification/Sedation ASA Classification/Sedation ASA Class: IV Emergent: Yes Risks: Risks, benefits and alternatives explained and patient/family accepted plan for sedation. Patient re-evaluated immediately prior to sedation.
--- NOTE | 2024-10-21 14:15 | WPDHPUPDATE1 ---
History and Physical Update Update Date/Time: 10/21/24 14:15 History and Physical has been reviewed, including an updated exam of the patient. There are NO changes in the patient's condition. Risks, benefits, and alternatives have been discussed and questions answered. Patient agrees to proceed with procedure.
--- NOTE | 2024-10-21 14:20 | PCCCNOTE ---
Spoke to the pt's whom is in the waiting room with their son. Stated the pt started c/o chest pain, bilat arm pain, and indigestion two hours ago. He took four ibuprofen and 2 Pepto Bismol chewable tabs w/o relief and was agreeable to come to the ED. Stated he's generally very athletic and participates in Iron [employer] competitions. Also states both of his parents have had heart attacks. Stated he does inject peptides routinely. Shortly after the family was escorted to the ICU waiting room. ED provider updated.-amol
[2024-10-21 14:26] LABS: Troponin I < 0.012 ng/mL (0.000-0.034)
--- NOTE | 2024-10-21 14:46 | P.PCNCC_ITS ---
Cardiac Cath Procedure Note Date of procedure:: 10/21/24 Performing physician:: CATHETERIZATION LABORATORY REPORT Procedure Date: 10/21/2024 Referring Physician: Dr. Ames Anesthesia: Versed and Fentanyl were ordered and given in my presence at 1420, procedure ended at 1432. Supervision of nurse, Dee Bustos monitored moderate sedation with 2mg Versed and 100mcg Fentanyl was provided for 12 minutes. Pre-op Diagnosis: Anterior ST-elevation IN Post-op Diagnosis: Chest pain Procedure(s): Left heart catheterization with coronary angiography Access Site: Right radial artery Brief History and Clinical Indications: 44-year-old man with no significant past medical history however does have strong family history of coronary artery disease presents with sudden onset substernal chest discomfort with radiation to the neck whose EKG was concerning for anterior ST-elevation [place] the which he was brought to the cardiac catheterization lab to define his coronary anatomy with possible PCI. All risks, benefits and alternatives to left heart catheterization with or without percutaneous coronary intervention was discussed at length with the patient. Risk of complications including but not limited to bleeding, infection, arrhythmia, stroke, worsening kidney function, blood loss, groin hematoma, limb loss, emergency coronary artery bypass grafting, and even were discussed with the patient and all questions were answered. The patient understood and wished to proceed. Time out called, patient name, date of , medical record number, allergies, procedure performed, identify Manager Primary, patient and staff member concurred with accurate data, procedure carried on. Findings: LEFT HEART CATHETERIZATION FINDINGS: 1. Left main: The left main coronary artery is short and widely patent. 2. Left anterior descending: The LAD and the diagonal branches are normal. There is significant tortuosity of the LAD with areas of myocardial bridging. 3. Left circumflex: The left circumflex artery and the main marginal branches are normal. 4. Right coronary artery: The RCA is a large dominant vessel that is angiographically free of disease. 5. Left ventricle: A. End-diastolic pressure 14 mmHg. B. LV gram deferred. C. No significant gradient across aortic valve on catheter pullback. 6. Opening AO pressure 111/73 and closing AO pressure 111/64 Description of Procedure: Informed consent signed and placed in the chart. Patient transferred to boot and shoe laborer room. Prepped and draped in usual sterile fashion. 2% lidocaine injected subcutaneously in right wrist area. 22-gauge venipuncture catheter used to access the right radial artery with the Seldinger technique. 6-FR slender sheath placed in right radial artery. Nitroglycerin 200mcg, Verapamil 2.5mg, and Heparin 5000U was given intraarterial through the sheath. J wire advanced under fluoroscopy 5F Ultra diagnostic catheter engaged Left Main Coronary Artery. 5F Ultra diagnostic catheter engaged Right Coronary Artery Multiple orthogonal angiogram obtained and reviewed 5F Pigtail catheter crossed aortic valve to obtain LVEDP, LV angiogram deferred. Hemostasis was achieved by application of TR band. Assessment: Normal coronary arteries. Myocardial bridging. Post Operative Condition: Stable No significant blood loss Disposition: Can downgrade to IMU Plan: Obtain a transthoracic echocardiogram to rule out pericardial effusion and assess biventricular systolic function and integrity of the valves. We will obtain a ESR as well as a CRP with tomorrow morning labs. Likely discharge tomorrow if above cardiac workup unremarkable. Jeremias Mahajan Interventional Cardiology
[2024-10-21 15:17] LABS: Estimated CRCL calculation 35 ml/min; Estimated Glomerular Filt Rate 36
--- NOTE | 2024-10-21 15:40 | PM.DS ---
DS: Admitting Diagnosis Discharge Date 10/21/2024 Admitting Diagnosis Chest pain DS: Discharge Diagnosis Discharge Diagnosis Plan 44-year-old man presented with chest pain his EKG was concerning for anterior ST-elevation [place] was brought to the cardiac catheterization lab where he was found abnormal coronary arteries. And postprocedure he is doing well and I have explained that to me a transthoracic echocardiogram as well as well for inflammation markers which he agreed. However he preferred to have this done outpatient which is reasonable. He will be follow-up with his primary care physician. DS: Summary Hospital Course Reason for hospitalization: Chest pain Hospital Course: 44-year-old man presented with chest pain his EKG was concerning for anterior ST-elevation [place] was brought to the cardiac catheterization lab where he was found abnormal coronary arteries. And postprocedure he is doing well and I have explained that to me a transthoracic echocardiogram as well as well for inflammation markers which he agreed. However he preferred to have this done outpatient which is reasonable. He will be follow-up with his primary care physician. Status at Discharge Functional status at discharge: independent ambulation Time Spent with Patient Time attestation: Total time spent providing and/or coordinating discharge services: Time spent: Less than 30 minutes Exam Const: General: comfortable HENMT: Mouth: Yes moist mucous membranes Eyes: EOM: EOMs intact bilaterally Neck: Neck: no JVD Resp: Effort & Inspection: normal respiratory effort Auscultation: clear to auscultation bilaterally Extrem: General: no pedal edema DS: Data Data Completed and Pending Labs on day of discharge: Labs from last 24 hours 10/21/24 13:55 WBC 6.5 RBC 4.38 L Hgb 13.1 L Hct 40.2 L MCV 91.8 MCH 29.9 MCHC 32.6 RDW 11.9 Plt Count 234 MPV 9.4 Immature Gran % (Auto) 0.2 Neut % (Auto) 55.1 Lymph % (Auto) 27.1 [place] % (Auto) 12.6 H Eos % (Auto) 4.2 Baso % (Auto) 0.8 Lymph # (Auto) 1.76 [place] # (Auto) 0.8 H Eos # (Auto) 0.3 Baso # (Auto) 0.1 Abs Immat Gran (auto) 0.01 Absolute Neuts (auto) 3.6 Absolute Nucleated RBC 0.000 Nucleated RBC % 0.0 PT 12.9 INR 1.0 APTT 31.6 Sodium 133 L Potassium 3.9 Chloride 101 Carbon Dioxide 24 Anion Gap 8 BUN 29 H Creatinine 2.03 H Estim Creat Clear Calc 35 Estimated GFR 36 L Glucose 99 Calcium 9.0 Total Bilirubin 0.6 AST 59 ALT 35 Alkaline Phosphatase 57 Troponin I < 0.012 Total Protein 7.6 Albumin 4.3 Lipase 218 Discharge Plan Discharge Attending physician on discharge: Jeremias Mahajan Discharging Clinician: Jeremias Mahajan Patient Disposition: Home Activity: other - see discharge instructions Diet: heart healthy Wound Care Instructions: other - see discharge instructions Patient Instructions: Antibiotic Form, After Radial Heart Catheterization (GEN) Patient Language: French Stand Alone Forms: General Discharge Information Follow-up/Referrals: Oneil Alvarez MD [Primary Care Provider] - Discharge Medications: Continued No Home Medications Date of admission: 10/21/24 13:55 Primary Care Provider: Oneil Alvarez Admitting Provider: Brady Hendrickson Attending physician on admission: Brady Hendrickson Condition: Stable
[2024-10-21 17:21] LABS: Activated Clotting Time 262 SEC (74-137)
== END 2024-10-21 19:59 | disposition home or self-care (01) | DRG 287 ==
LOC: ANHED 13:56 → ANHICU 14:14
PROVIDERS: Emergency Medicine; Internal Medicine; Admitting Provider Internal Medicine; Emergency Provider Student in an Organized Health Care Education/Training Program; PCP Family Medicine; Visit Provider Internal Medicine
PROC: 4A023N7 Measurement of Cardiac Sampling and Pressure, Left Heart, Percutaneous Approach (ICD-10-PCS; CPT 93452; principal; 2024-10-21 14:00)
DX: R07.9 Chest pain, unspecified (principal); Q24.5 Malformation of coronary vessels
CPT/HCPCS: 36415; 80053; 83690; 84484; 85025; 85610; 85730; 93005; 93458; 99285; A9270; C1769; C1887; C1894; J1644; J2003; J2250; J2305; J3010; J7040

== ENCOUNTER 2024-11-26 09:36 | Outpatient (CLI) | payer OTHER, SELFPAY ==
--- OUTSIDE RECORDS SUMMARY | 2024-11-26 09:51 | XMS_ITS | Clinical Summary ---
Author Organization [facility] [place] [place] [address] [facility] [address] [place] [address] Care Team Providers Care Outreach Specialist Name Role Phone Abigail Dean Primary Care Provider [phone] Encounters Date Type Department Care Team Description 10/28/2024 Orders Only [facility] Card[facility] [address] [place] [address] Jeremias Mahajan MD from Last 3 Months Social History Tobacco Use Types Packs/Day Years Used Date Smoking Tobacco: Never Assessed Sex and Gender Information Value Date Recorded Sex Assigned at Not on file Legal Sex Male 11:01 AM CDT Gender Identity Not on file Sexual Orientation Not on file Plan of Treatment Health Maintenance Due Date Last Done Comments Colon Cancer Screening-Colonoscopy 1979 Depression Screening 1979 Hepatitis C Screening 1979 DTaP/Tdap/Td Vaccine (1 - Tdap) 1990 Hepatitis B Screening 1997 Regular Well Visit/Exam 18-64 1997 HPV Vaccines (1 - 3-dose SCD M series) 2006 Influenza Vaccine (#1) 2024 Pneumococcal vaccine <65 Aged Out No longer eligible based on patient's age to complete this topic Procedures Procedure Name Priority Date/Time Associated Diagnosis Comments CARDIOLOGY DOCUMENT SCAN Routine 10/21/2024 2:56 PM CDT CARDIOLOGY DOCUMENT SCAN Routine 10/21/2024 2:50 PM CDT from Last 3 Months Results * Cardiology Document Scan (10/21/2024 2:56 PM CDT) Anatomical Region Laterality Modality Other Jeremias Mahajan MD CV CARDIAC SERVICES PROCEDURES F inal Result * Cardiology Document Scan (10/21/2024 2:50 PM CDT) Anatomical Region Laterality Modality Other Jeremias Mahajan MD CV CARDIAC SERVICES PROCEDURES F inal Result from Last 3 Months Insurance [facility] PL[facility] Care Teams Outreach Specialist Relationship Specialty Start Date End Date Abigail Dean PA [address] [place] [address] PCP - General Physician Quality Assurance Tech 10/28/24
--- OUTSIDE RECORDS SUMMARY | 2024-11-26 09:51 | XMS_ITS | Clinical Summary ---
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 Gender Identity Not on file Sexual Orientation Not on file Plan of Treatment Health Maintenance Due Date Last Done Comments Hepatitis C Virus (HCV) Screening 1980 Human Papillomavirus (HPV) Immunization (1 - Male 3-dose series) 1994 Hepatitis B Immunization (1 of 3 - 19+ 3-dose series) 1998 SARS-COV-2 Immunization ( season) 2023 Cologuard 02/08/2024 Colonoscopy 02/08/2024 Colorectal Cancer Screening 02/08/2024 Immunochemical Fecal Occult Blood 02/08/2024 Influenza Immunization (#1) 12/28/202412/28, 02/04/2019, 06/18/2018, Additional history exists Respiratory Syncytial Virus (RSV) Immunization (Adult) (1 - 1-dose 75+ series) 2054 DTaP/Tdap/Td Immunization Discontinued 06/18/2019 TdaP Immunization Completed 06/18/2019 Meningococcal Immunization (ACWY) Aged Out No longer eligible based on patient's age to complete this topic Pneumococcal Immunization Combined Aged Out No longer eligible based on patient's age to complete this topic Rotavirus Immunization Aged Out No lo nger eligible based on patient's age to complete this topic
--- OUTSIDE RECORDS SUMMARY | 2024-11-26 09:51 | XMS_ITS | Referral Summary ---
Author Organization [facility] [address] Address [address] [place] [address] Care Team Providers Care Warp Changer Name Role Phone Dianne Abigail WHITNEY Primary Care Provider Encounters Date Type Department Care Team Description 10/28/2024 Orders Only [facility] Cardiology [address] [facility] [address] [place] [address] Jeremias Mahajan MD from Last 3 Months Social History Tobacco Use Types Packs/Day Years Used Date Smoking Tobacco: Never Assessed Sex and Gender Information Value Date Recorded Sex Assigned at Not on file Legal Sex Male 11:01 AM CDT Gender Identity Not on file Sexual Orientation Not on file Plan of Treatment Not on file Procedures Procedure Name Priority Date/Time Associated Diagnosis Comments CARDIOLOGY DOCUMENT SCAN Routine 10/21/2024 2:56 PM CDT CARDIOLOGY DOCUMENT SCAN Routine 10/21/2024 2:50 PM CDT from Last 3 Months Results * Cardiology Document Scan (10/21/2024 2:56 PM CDT) Anatomical Region Laterality Modality Other us Jeremias Mahajan MD [facility] PROCEDURES F inal Result * Cardiology Document Scan (10/21/2024 2:50 PM CDT) Anatomical Region Laterality Modality Other us Jeremias Mahajan MD CV CARDIAC SERVICES PROCEDURES F inal Result from Last 3 Months Insurance [facility] H[facility]/PPO Address: [facility] [address] [place] [address] Care Teams Warp Changer Relationship Specialty Start Date End Date Abigail Dean PA [address] [place], [place] [id number] PCP - General Physician Supervising Airplane Pilot 10/28/24
--- NOTE | 2024-11-26 09:56 | ECHO_ITS ---
Patient Info Name: Kirk Redding Age: 44 years : 1980 Gender: Male Ht: 67 in Wt: 130 lbs BSA: 1.67 m2 HR: 42 bpm BP: 97 / 72 mmHg Technical Quality: Excellent Exam Date: 11/26/2024 10:10 AM Patient Status: O Admit Date: 11/26/2024 Exam Type: CA echo doppler color flow Complete two-dimensional, color flow and Doppler transthoracic echocardiogram is performed. Mechanical Fitter: Taylor Bustos Attending Provider: Abigail Dean Summary 1. Complete two-dimensional, color flow and Doppler transthoracic echocardiogram is performed. 2. There is normal biventricular size and systolic function. 3. There is normal diastolic function. 4. There are no significant valvular abnormalities. Left Ventricle The left ventricle is normal in size and systolic function. The left ventricular ejection fraction is visually estimated be 50-55%. There is normal diastolic function. There is no regional wall motion abnormalities. Right Ventricle The right ventricle is normal in size and systolic function. Left Atria The left atrium is normal size. Right Atria The right atrium is normal size. Atrial Septum The atrial septum visually appears intact. Aortic Valve The aortic valve is trileaflet and opens well. There is no aortic regurgitation. Pulmonic Valve The pulmonic valve is grossly normal. There is trace pulmonic valve regurgitation. Mitral Valve The mitral valve is normal. There is trace mitral regurgitation. Tricuspid Valve The tricuspid valve is normal. There is trace tricuspid regurgitation. Pericardium/Pleural Pericardium is normal in appearance with no evidence for significant pericardial effusion. Inferior Vena Cava Dilated inferior vena cava with >50% collapse upon inspiration consistent with elevated right atrial pressure, 8 mmHg. Aorta The aortic root at the level of the sinus of Valsalva measures 3.5 cm in diameter. Left Ventricular Outflow Tract Name Value Normal LVOT 2D LVOT Diameter 2.5 cm LVOT Doppler LVOT Peak Velocity 97 cm/s LVOT Peak Gradient 4 mmHg LVOT Mean Gradient 2 mmHg LVOT VTI 24 cm LVOT Stroke Volume 113 ml LVOT CO 4.7 l/min LVOT CI 2.8 l/min/m2 Pulmonic Valve Name Value Normal RVOT Doppler RVOT Peak Velocity 64 cm/s RVOT Peak Gradient 2 mmHg PV Doppler PV Peak Velocity 72 cm/s PV Peak Gradient 2 mmHg Mitral Valve Name Value Normal MV Diastolic Function MV E Peak Velocity 57 cm/s MV A Peak Velocity 52 cm/s MV E/A 1.1 MV Decel Time (PW) 288 ms MV Annular TDI MV E/e' (Septal) 5.4 MV E/e' (Lateral) 5.4 MV E/e' (Average) 5.4 Tricuspid Valve Name Value Normal TV Regurgitation Doppler TR Peak Velocity 230 cm/s TR Peak Gradient 21 mmHg Estimated PAP/RSVP RA Pressure 8 mmHg <=5 PA Systolic Pressure 29 mmHg <36 RV Systolic Pressure 29 mmHg <36 Aortic Valve Name Value Normal AV Doppler AV Peak Velocity 116 cm/s AV Peak Gradient 5 mmHg AV Area (Cont Eq Vern) 4.1 cm2 AV DI (Vern) 0.84 AV Regurgitation 2D LVOT Area 4.8 cm2 Ventricles Name Value Normal LV Dimensions 2D/MM IVS Diastolic Thickness (2D) 0.9 cm 0.6-1.0 LVID Diastole (2D) 5.0 cm 4.2-5.8 LVIW Diastolic Thickness (2D) 0.9 cm 0.6-1.0 LVID Systole (2D) 3.3 cm 2.5-4.0 LVOT Diameter 2.5 cm LV Mass (2D Cubed) 156.41 g 88.00-224.00 LV Mass Index (2D Cubed) 94 g/m2 49-115 Relative Wall Thickness (2D) 0.34 <=0.42 LV Fractional Shortening/Ejection Fraction 2D/MM LV Fractional Shortening (2D) 34 % 25-43 LV EF (2D Teichholz) 62 % LV Diastolic Volume (4C MOD) 143 ml LV EF (4C MOD) 66 % LV Diastolic Volume (2C MOD) 162 ml LV EF (2C MOD) 55 % LV Diastolic Volume (BP MOD) 154 ml 62-150 LV Diastolic Volume Index (BP MOD) 92 ml/m2 34-74 LV Systolic Volume (BP MOD) 59 ml 21-61 LV Systolic Volume Index (BP MOD) 35 ml/m2 11-31 LV EF (BP MOD) 62 % 52-72 LV Diastolic Length (4C) 8.4 cm LV Systolic Length (4C) 7.5 cm LV Stroke Volume (4C MOD) 95 ml Atria Name Value Normal LA Dimensions LA Volume (4C A-L) 60 ml LA Volume (BP A-L) 56 ml RA Dimensions RA Systolic Major [place] Length (4C) 5.9 cm 2.1-2.7 RA Area (4C) 21.6 cm2 <=18.0 Report Signatures
== END 2024-11-26 09:37 | disposition home or self-care (01) ==
PROVIDERS: PCP Family Medicine; Visit Provider Physician Assistant Medical
DX: I21.3 ST elevation (STEMI) myocardial infarction of unspecified site (principal); R07.9 Chest pain, unspecified
CPT/HCPCS: 93306